=== PATIENT | female | born 1980 | race Caucasian/White ===

== ENCOUNTER 2018-03-30 08:12 | Day surgery (SDC) | payer BC ==
[~2018-03-30] VITALS: Ht 175.3 cm; Wt 92.7 kg
[~2018-03-30 08:12] MED LIST: OXYACE5T PO
[2018-03-30] MEDS ORDERED: Omeprazole20 M1 (08:53)
[2018-03-30] MEDS ORDERED: NAPR500 (08:54)
[2018-03-30] MEDS ORDERED: ACET120S (08:54)
== END 2018-03-30 11:10 | disposition home or self-care (01) ==
LOC: ORSCSDS 08:12
PROVIDERS: Internal Medicine Gastroenterology
PROC: 0DBN8ZX Excision of Sigmoid Colon, Via Natural or Artificial Opening Endoscopic, Diagnostic (ICD-10-PCS; principal; 2018-03-30 09:30)
PROC: 0DBH8ZX Excision of Cecum, Via Natural or Artificial Opening Endoscopic, Diagnostic (ICD-10-PCS; principal; 2018-03-30 09:30)
PROC: 0DBL8ZX Excision of Transverse Colon, Via Natural or Artificial Opening Endoscopic, Diagnostic (ICD-10-PCS; principal; 2018-03-30 09:30)
DX: Z86.010 Personal history of colon polyps (principal); D12.0 Benign neoplasm of cecum; D12.3 Benign neoplasm of transverse colon; K63.5 Polyp of colon; K64.8 Other hemorrhoids; K57.30 Diverticulosis of large intestine without perforation or abscess without bleeding; Z87.891 Personal history of nicotine dependence
CPT/HCPCS: J0461; J7120

== ENCOUNTER 2018-07-21 06:15 | Emergency (ER) | payer BC ==
[~2018-07-21] VITALS: Ht 175.3 cm; Wt 93.0 kg
[~2018-07-21 06:15] MED LIST changes: +ACET120S; +NAPR500 PO; +Omeprazole20 M1 PO
[2018-07-21] MEDS ORDERED: ACET500 PO (06:30)
[2018-07-21] MEDS ORDERED: Robaxin-750750 MG PO (07:40)
== END 2018-07-21 07:49 | disposition home or self-care (01) ==
LOC: ER 06:15
DX: M62.830 Muscle spasm of back (principal); R55 Syncope and collapse; Z79.899 Other long term (current) drug therapy
CPT/HCPCS: 72100; 99283-25

== ENCOUNTER 2021-05-15 07:28 | Day surgery (SDC) | payer BC ==
[~2021-05-15] VITALS: Ht 175.3 cm; Wt 94.0 kg
[~2021-05-15 07:28] MED LIST changes: +ACET500 PO; +OZEMPIC0.25 MG/0.; +Robaxin-750750 MG PO
[2021-05-15] MEDS ORDERED: OMEP20ER (08:10)
[2021-05-15] MEDS ORDERED: NAPR220 (08:10)
== END 2021-05-15 09:45 | disposition home or self-care (01) ==
LOC: ORSCSDS 07:28
PROVIDERS: Internal Medicine Gastroenterology
PROC: 0DBN8ZX Excision of Sigmoid Colon, Via Natural or Artificial Opening Endoscopic, Diagnostic (ICD-10-PCS; principal; 2021-05-15 08:45)
PROC: 0DBL8ZX Excision of Transverse Colon, Via Natural or Artificial Opening Endoscopic, Diagnostic (ICD-10-PCS; principal; 2021-05-15 08:45)
DX: Z12.11 Encounter for screening for malignant neoplasm of colon (principal); Z86.010 Personal history of colon polyps; D12.5 Benign neoplasm of sigmoid colon; D12.3 Benign neoplasm of transverse colon; K64.8 Other hemorrhoids; Z87.891 Personal history of nicotine dependence; Z79.899 Other long term (current) drug therapy
CPT/HCPCS: 88305; J2250; J2704; J7120

== ENCOUNTER 2024-08-02 09:52 | Day surgery (SDC) | payer BC ==
[~2024-08-02] VITALS: Ht 175.3 cm; Wt 97.5 kg
[~2024-08-02 09:52] MED LIST changes: +Lactated Ringer's 1,000 ML IV ONE; +NAPR220; +OMEP20ER; +propofoL 50 ML IV ONE
[2024-08-02] MEDS ORDERED: Lactated Ringer's 1,000 ML IV ONE (10:41)
[2024-08-02 12:24] VITALS: BP 104/73
== END 2024-08-02 12:00 | disposition home or self-care (01) ==
LOC: ORSCSDS 09:52
PROVIDERS: Internal Medicine Gastroenterology
PROC: 0DBN8ZX Excision of Sigmoid Colon, Via Natural or Artificial Opening Endoscopic, Diagnostic (ICD-10-PCS; principal; 2024-08-02 11:45)
DX: Z12.11 Encounter for screening for malignant neoplasm of colon (principal); Z86.0101 Personal history of adenomatous and serrated colon polyps; K63.5 Polyp of colon; K21.9 Gastro-esophageal reflux disease without esophagitis; Z79.899 Other long term (current) drug therapy
CPT/HCPCS: 88305; J2704; J7120